=== PATIENT | male | born 1980 | race Caucasian/White ===

== ENCOUNTER 2021-07-11 18:43 | Emergency (ER) | payer OTHER ==
[~2021-07-11] VITALS: Ht 175.3 cm; Wt 79.5 kg
[2021-07-11 18:50] VITALS: BP 136/96
[2021-07-11] MEDS ORDERED: METF-350 PO (19:05)
--- NOTE | 2021-07-11 19:23 | NUR ---
REPORT RECEIVED FROM ROE MOURA FOR CONTINUATION OF PATIENT CARE AT THIS TIME.
[2021-07-11] MEDS ORDERED: NACL 0.9% 2,000 ML IV ONE (19:25)
--- NOTE | 2021-07-11 19:25 | NUR ---
Antionette alfonso in [facility] - 07/11/21 at 2153 by ABELINO REPORT RECEIVED FROM ROE MOURA FOR CONTINUATION OF PATIENT CARE AT THIS TIME .
--- NOTE | 2021-07-11 19:34 | NUR ---
Pt report given to ROE beltran. Transfer of care at this time.
[2021-07-11 19:40] VITALS: BP 136/96
--- NOTE | 2021-07-11 19:40 | NUR ---
Patient [id number], GCS 15. Patient does not wish to proceed with medical care recommended by . Patient given information related to possible complications, up to and including , which could occur as a result of leaving hospital at this time. Patient verbalizes understanding of risks involved leaving against medical advice. Patient has signed AMA form.
== END 2021-07-11 19:40 | disposition left against medical advice (07) ==
LOC: MED 18:43
DX: S09.90XA Unspecified injury of head, initial encounter (principal); E11.65 Type 2 diabetes mellitus with hyperglycemia; Z79.84 Long term (current) use of oral hypoglycemic drugs; V89.2XXA Person injured in unspecified motor-vehicle accident, traffic, initial encounter; Y93.89 Activity, other specified; Y92.89 Other specified places as the place of occurrence of the external cause; Y99.8 Other external cause status
CPT/HCPCS: 99281; J7030